=== PATIENT | male | born 1945 | race Caucasian/White ===

== ENCOUNTER → 2017-05-05 | Outpatient (CLI) | payer MEDICARE ==
[~2017-05-05] MED LIST: ACE500 PO; ASPI-1441 PO; ATOR40TA24 PO; CARV12.577 PO; CIPR-344 PO; CLO75 PO; HYDR-4309 PO; KET10 PO; LOSA50TA72 PO; METR-160 PO; NIT4 SL; OXYC-689 PO; SIMV-54 PO
== END ==
LOC: LAB 08:33
PROVIDERS: ATTEND Internal Medicine Cardiovascular Disease
DX: I25.10 Atherosclerotic heart disease of native coronary artery without angina pectoris (principal); E78.00 Pure hypercholesterolemia, unspecified
CPT/HCPCS: 36415; 82465; 83718; 84478

== ENCOUNTER 2017-07-23 09:02 | Emergency (ER) | payer MEDICARE ==
[2017-07-23] MEDS ORDERED: NS(*) 0.9% 1000 ML BAG 1,000 ML IV ONE (09:10)
--- NOTE | 2017-07-23 09:20 | EKG ---
FACILITY: [facility] PATIENT NAME: BRIDGETTE CARUSO : [id number] MR: [id number] V: [id number] EXAM DATE: ORDERING PHYSICIAN: BASHIR ESCALERA TECHNOLOGIST: JOSSY Patricio Reason : TIA Blood Pressure : / mmHG Vent. Rate : 079 BPM Atrial Rate : 079 BPM P-R Int : 146 ms QRS Dur : 114 ms QT Int : 428 ms P-R-T Axes : 056 -14 158 degrees QTc Int : 490 ms Normal sinus rhythm with sinus arrhythmia Minimal voltage criteria for LVH, may be normal variant T wave abnormality, consider lateral ischemia Prolonged QT Abnormal ECG No previous ECGs available Confirmed by BRIDGETTE DEL REAL ([id number]) on 07/24/2017 12:29:04 PM Referred By: LALI Confirmed By:BRIDGETTE DEL REAL
--- NOTE | 2017-07-23 09:31 | ER Report ---
History and Physical Time Seen By MD: 09:10 Hx. of Stated Complaint: PATIENT WAS BROUGHT IN BY FAMILY FOR CONCERN OF A STROKE HPI/ROS CHIEF COMPLAINT: Strokelike symptoms HISTORY OF PRESENT ILLNESS: Patient is a 71-year-old male history of cardiovascular disease and bypass about 7-10 years ago this morning felt fine was at his baseline went to put some logs into a fireplace notices right upper extremity began getting weaker until eventually he had almost loss of function of the right upper extremity and an asymmetrical facial droop. Patient states that he subsequently no lower extremity involvement no memory loss no ataxia no nausea vomiting diarrhea or additional complaints noted REVIEW OF SYSTEMS: Respiratory: No cough, no dyspnea. Cardiovascular: No chest pain, no palpitations. Gastrointestinal: No vomiting, no abdominal pain. Musculoskeletal: No back pain. Remainder of the 14 system rev: Yes Allergies: Coded Allergies: codeine (Verified Allergy, Severe, RASH, 09/07/15) Home Meds Reported Medications Nitroglycerin (NITROSTAT) 0.4 Mg Subl, 0.4 MG SL Q5MIN Y for PAIN 12/22/14 Carvedilol (COREG) 12.5 Mg Tablet, 12.5 MG PO BID, #10 TAB 12/22/14 Losartan Potassium (LOSARTAN POTASSIUM) 50 Mg Tablet, 50 MG PO BID 12/22/14 Simvastatin (SIMVASTATIN) 40 Mg Tablet, 40 MG PO HS, TAB 12/22/14 Aspirin (Aspirin Ec) 81 Mg Tablet.dr, 81 MG PO DAILY, 0 Refills 09/03/10 Reviewed Nurses Notes: Yes Old Medical Records Reviewed: Yes Hx Smoking: No Smoking Status: Never Smoker Exposure to Second Hand Smoke?: No Hx Substance Use Disorder: No Hx Alcohol Use: Yes (RARE) Constitutional Vital Sign - Last 24 Hours 07/23/17 07/23/17 07/23/17 07/23/17 09:07 09:13 09:14 09:17 Pulse 83 81 Resp 20 B/P (MAP) 137/97 137/97 (110) Pulse Ox 91 90 07/23/17 07/23/17 07/23/17 07/23/17 09:22 09:27 09:30 09:32 Pulse 78 78 82 Resp 21 16 13 B/P (MAP) 126/89 (101) 125/103 (110) Pulse Ox 91 94 92 07/23/17 09:37 Pulse 79 Resp 17 Pulse Ox 91 Physical Exam General Appearance: The patient is alert, has no immediate need for airway protection and no current signs of toxicity. [ ] Eyes: Pupils equal and round no injection. Facial examination shows some facial asymmetry with a left-sided facial droop Respiratory: Chest is non tender, lungs are clear to auscultation. Cardiac: regular rate and rhythm [ ] Gastrointestinal: Abdomen is soft and non tender, no masses, bowel sounds normal. Musculoskeletal: Right upper 70 weakness Neck is supple and non tender. Extremities have full range of motion and are non tender. Skin: No rashes or lesions. 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 and left-sided facial asymmetry DIFFERENTIAL DIAGNOSIS: After history and physical exam differential diagnosis was considered for acute stroke Medical Decision Making Data Points Result Diagram: 07/23/17 0920 07/23/17 0920 Laboratory Hematology Test 07/23/17 09:20 Red Blood Count 4.53 M/uL (4.00-5.60) Mean Corpuscular Volume 95.2 fL (80.0-96.0) Mean Corpuscular Hemoglobin 32.6 pg (26.0-33.0) Mean Corpuscular Hemoglobin Concent 34.2 g/dL (32.0-36.0) Red Cell Distribution Width 13.7 % (11.5-14.5) Mean Platelet Volume 9.9 fL (7.2-11.1) Neutrophils (%) (Auto) 76.1 % (39.4-72.5) Lymphocytes (%) (Auto) 14.9 % (17.6-49.6) Monocytes (%) (Auto) 7.2 % (4.1-12.4) Eosinophils (%) (Auto) 1.1 % (0.4-6.7) Basophils (%) (Auto) 0.7 % (0.3-1.4) Nucleated RBC Relative Count (auto) 0.0 /100WBC Neutrophils # (Auto) 5.8 K/uL (2.0-7.4) Lymphocytes # (Auto) 1.1 K/uL (1.3-3.6) Monocytes # (Auto) 0.5 K/uL (0.3-1.0) Eosinophils # (Auto) 0.1 K/uL (0.0-0.5) Basophils # (Auto) 0.1 K/uL (0.0-0.1) Nucleated RBC Absolute Count (auto) 0.00 K/uL Prothrombin Time 13.0 seconds (12.0-14.4) Prothromb Time International Ratio 0.98 Activated Partial Thromboplast Time 30 seconds (23-35) Sodium Level 145 mmol/L (137-145) Potassium Level 3.9 mmol/L (3.5-5.0) Chloride Level 106 mmol/L (98-107) Carbon Dioxide Level 24 mmol/L (22-30) Blood Urea Nitrogen 20 mg/dl (9-21) Creatinine 1.00 mg/dl (0.66-1.25) Glomerular Filtration Rate Calc > 60.0 Random Glucose 142 mg/dl (75-110) Calcium Level 8.7 mg/dl (8.4-10.2) Total Bilirubin 0.9 mg/dl (0.2-1.3) Aspartate Amino Transf (AST/SGOT) 39 U/L (0-35) Alanine Aminotransferase (ALT/SGPT) 42 U/L (0-56) Alkaline Phosphatase 82 U/L (0-126) Troponin I 1.900 ng/ml Total Protein 7.1 gm/dl (6.3-8.2) Albumin 3.8 g/dl (3.5-5.0) Chemistry Test 07/23/17 09:20 White Blood Count 7.6 k/uL (4.5-11.0) Red Blood Count 4.53 M/uL (4.00-5.60) Hemoglobin 14.8 g/dL (14.0-18.0) Hematocrit 43.1 % (42.0-52.0) Mean Corpuscular Volume 95.2 fL (80.0-96.0) Mean Corpuscular Hemoglobin 32.6 pg (26.0-33.0) Mean Corpuscular Hemoglobin Concent 34.2 g/dL (32.0-36.0) Red Cell Distribution Width 13.7 % (11.5-14.5) Platelet Count 190 K/uL (150-450) Mean Platelet Volume 9.9 fL (7.2-11.1) Neutrophils (%) (Auto) 76.1 % (39.4-72.5) Lymphocytes (%) (Auto) 14.9 % (17.6-49.6) Monocytes (%) (Auto) 7.2 % (4.1-12.4) Eosinophils (%) (Auto) 1.1 % (0.4-6.7) Basophils (%) (Auto) 0.7 % (0.3-1.4) Nucleated RBC Relative Count (auto) 0.0 /100WBC Neutrophils # (Auto) 5.8 K/uL (2.0-7.4) Lymphocytes # (Auto) 1.1 K/uL (1.3-3.6) Monocytes # (Auto) 0.5 K/uL (0.3-1.0) Eosinophils # (Auto) 0.1 K/uL (0.0-0.5) Basophils # (Auto) 0.1 K/uL (0.0-0.1) Nucleated RBC Absolute Count (auto) 0.00 K/uL Prothrombin Time 13.0 seconds (12.0-14.4) Prothromb Time International Ratio 0.98 Activated Partial Thromboplast Time 30 seconds (23-35) Glomerular Filtration Rate Calc > 60.0 Calcium Level 8.7 mg/dl (8.4-10.2) Total Bilirubin 0.9 mg/dl (0.2-1.3) Aspartate Amino Transf (AST/SGOT) 39 U/L (0-35) Alanine Aminotransferase (ALT/SGPT) 42 U/L (0-56) Alkaline Phosphatase 82 U/L (0-126) Troponin I 1.900 ng/ml Total Protein 7.1 gm/dl (6.3-8.2) Albumin 3.8 g/dl (3.5-5.0) Coagulation Test 07/23/17 09:20 Prothrombin Time 13.0 seconds Prothromb Time International Ratio 0.98 Activated Partial Thromboplast Time 30 seconds ED Course/Re-evaluation ED Course Medical course [age]-old male comes in with acute strokelike symptoms onset less than 2 hours prior to presentation by criteria for utilization a TPA stroke protocol was initiated as was a stroke alert spoke to 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 is indicated as her medications as he CT demonstrated an old infarct but no acute focal bleed gave TPA would be administered CT angiogram of the head neck also requested by neurology this be performed repeat evaluation neurologically show some mild improvement patient also noted on lab to have an elevated troponin does have a significant cardiac history 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 [facility] does not want any additional medications given at this time he'll be sent by helicopter due to both head strokelike symptoms and cardiac ischemia patient will be sent by helicopter Decision to Disposition Date: Jul 23, 2017 Decision to Disposition Time: 10:26 Depart Departure Latest Vital Signs Vital Signs Date Time Temp Pulse Resp B/P (MAP) Pulse Ox O2 Delivery O2 Flow Rate FiO2 07/23/17 09:37 79 17 91 07/23/17 09:30 125/103 (110) Impression: Primary Impression: Acute cardioembolic stroke Additional Impressions: Acute ischemic stroke Cardiac ischemia Condition: Improved Disposition: XFER TO ACUTE [facility]ARE [facility]OS[facility]ITAL Referrals: DEEJAY KUMAR MD (PCP) Problem Qualifiers BASHIR ESCALERA MD Jul 23, 2017 09:31
[2017-07-23 09:35] LABS: PLATELET COUNT, AUTOMATED 190 K/uL (150-450)
[2017-07-23 09:41] LABS: INR 0.98
[2017-07-23] MEDS ORDERED: NS 0.9% 150 ML BAG 150 ML ONE (09:41)
[2017-07-23] MEDS ORDERED: IOPAMIDOL 76% 75 ML INFUS BTL 75 ML ONE (09:41)
--- NOTE | 2017-07-23 09:50 | RADIOLOGY IMAGING REPORT ---
FACILITY: [facility] [place] PATIENT NAME: Naldo Valencia : 1945 MR: [id number] V: [id number] EXAM DATE: ORDERING PHYSICIAN: BASHIR ESCALERA TECHNOLOGIST: Location: [facility] Patient: Naldo Valencia : 1945 Visit/Account:[id number] Date of Sevice: 07/23/2017 HEAD W/O CONTRAST Provided history: Altered mental status, stroke symptoms, right facial numbness. Additional pertinent history: None TECHNIQUE: Imaging was obtained from the skull base through the vertex without intravenous contrast. Source images were reformatted in the coronal sagittal planes. One of the following dose optimization techniques was utilized in the performance of this exam: Autom ated exposure control; adjustment of the mA and/or kV according to the patient's size; or use of an i terative reconstruction technique. Specific details can be referenced in the facility's radiology CT exam operational policy. COMPARISON STUDIES: No relevant priors FINDINGS: Brain volume: Normal Acute cortical ischemia: None Chronic cortical and ganglionic ischemia: Old moderate sized right parieto-occipital junction infar ct in the posterior right MCA distribution. Additional smaller old infarct right occipital lobe in t he right FLAT FOLDER distribution. Another in the mid peripheral right cerebellar hemisphere. More subtle o ld ischemia lower left putamen. Hemorrhage: None Masses / edema: None White matter: Minor hypodensity in the deep white matter of both hemispheres. Vessels: Normal Extra-axial: None significant Calvarium / scalp: Negative Skull base: negative Visualized sinuses / orbits: Lilly bullosa both middle turbinates. Mild rightward deviation nasal septum. IMPRESSION: 1. No evidence of hemorrhage, mass or acute ischemia. 2. Several sites of old ischemia in several vascular distributions are described above. 3. A CTA of the neck and brain is pending. Report Dictated By: Vikas Crawford MD at 07/23/2017 9:37 AM Report E-Signed By: Vikas Crawford MD at 07/23/2017 9:46 AM WSN:[id number]
[2017-07-23] MEDS ORDERED: TENECTEPLASE 50 MG KIT IVP ONE (10:05)
--- NOTE | 2017-07-23 10:08 | RADIOLOGY IMAGING REPORT ---
FACILITY: [facility] - [place] PATIENT NAME: Naldo Valencia : 1945 MR: [id number] V: [id number] EXAM DATE: ORDERING PHYSICIAN: BASHIR ESCALERA TECHNOLOGIST: [place] [facility] [place] Naldo Valencia : 1945 Visit/Account:[id number] Date of Sevice: 07/23/2017 CHEST PA AND LAT INDICATION: Stroke COMPARISON: None available FINDINGS: The cardiac silhouette is normal in size. Intact sternotomy wires are present. No pneum othorax. The lungs are clear. No acute osseous abnormality. IMPRESSION: No acute finding. Report Dictated By: Alden Marr MD at 07/23/2017 10:01 AM Report E-Signed By: Alden Marr MD at 07/23/2017 10:02 AM WSN:[id number]
[2017-07-23] MEDS ORDERED: ALTEPLASE RECOMB 100 MG/100 ML VIAL IV ONE (10:10)
[2017-07-23 11:10] VITALS: BP 118/87
--- NOTE | 2017-07-23 11:10 | RADIOLOGY IMAGING REPORT ---
FACILITY: [facility] PATIENT NAME: Naldo Valencia : 1945 MR: [id number] V: [id number] EXAM DATE: ORDERING PHYSICIAN: BASHIR ESCALERA TECHNOLOGIST: Location: [facility] Patient: Naldo Valencia : 1945 Visit/Account:[id number] Date of Sevice: 07/23/2017 CT ANGIOGRAM HEAD W/ CONTRAST, CTA NECK/CAROTIDS W W/O CONTR Provided history: Altered mental status. Stroke symptoms. Right facial numbness. Additional pertinent history: none TECHNIQUE: A preliminary non-IV enhanced axial series was obtained through the brain was performed initially and is oriented interpreted with nothing acute. Overlapping thin spiral sections were obtained during a bolus of IV contrast from the lung apices thr ough the vertex. Reconstruction of the source data set includes multiplanar 2D in the sagittal and co aashish planes, and 3D coronal thin slab MIP series. Help Desk Rep images have been stored on PACS. Contrast: 75 ml Isovue 370 One of the following dose optimization techniques was utilized in the performance of this exam: Autom ated exposure control; adjustment of the mA and/or kV according to the patient's size; or use of an i terative reconstruction technique. Specific details can be referenced in the facility's radiology C T exam operational policy. COMPARISON STUDIES: No relevant priors FINDINGS: Angiographic findings: Aortic arch and great vessels: Negative. Right CCA / ICA: Negative. Left CCA / ICA: Moderate proximal tortuosity with a partial kink in the vessel best seen on the sag ittal reformat resulting in less than 50% narrowing of the lumen. Common carotid bifurcation normal. Internal carotid normal. Vertebro-basilar: Left vertebral is dominant. Both vessels patent in continuity into the posterior fossa without stenotic disease. Basilar normal.. [place] of Dick: Negative. BETHEL circulation: Negative. MCA circulation: Asymmetric paucity of vessels in the posterior third of the right MCA circulation from an old infarct that location.. SEWER PIPE LAYER HELPER circulation: Negative. Other: none significant Additional non-angiographic findings: none significant IMPRESSION: Limited reconstructions are available at time of this dictation. This will serve as a preliminary re port, to be finalized after full reconstructions are received. The study reveals no significant stenotic disease in the neck or [place] of Dick. No significant at heromata. The soft tissue reconstructions of the neck are now received. Additional finding noted are several hypoenhancing foci in the thyroid gland, very likely benign. Pr evious bypass surgery noted. A saphenous vein graft to the circumflex is patent. A HU graft to th e LAD is patent. [place] proximal LAD is occluded. Upper margin of the right coronary graft enhances normally. Report Dictated By: Vikas Crawford MD at 07/23/2017 10:27 AM Report E-Signed By: Vikas Crawford MD at 07/23/2017 11:07 AM WSN:[id number]
--- NOTE | 2017-07-23 11:10 | RADIOLOGY IMAGING REPORT ---
FAC[place] [facility] [place]IENT NAME: Naldo Valencia : 1945 MR: [id number] V: [id number] EXAM DATE: ORDERING PHYSICIAN: BASHIR ESCALERA TECHNOLOGIST: Location: [facility] [place] Patient: Naldo Valencia : 1945 Visit/Account:[id number] Date of Sevice: 07/23/2017 CT ANGIOGRAM HEAD W/ CONTRAST, CTA NECK/CAROTIDS W W/O CONTR Provided history: Altered mental status. Stroke symptoms. Right facial numbness. Additional pertinent history: none TECHNIQUE: A preliminary non-IV enhanced axial series was obtained through the brain was performed initially and is oriented interpreted with nothing acute. Overlapping thin spiral sections were obtained during a bolus of IV contrast from the lung apices thr ough the vertex. Reconstruction of the source data set includes multiplanar 2D in the sagittal and co aashish planes, and 3D coronal thin slab MIP series. Card Scraper images have been stored on PACS. Contrast: 75 ml Isovue 370 One of the following dose optimization techniques was utilized in the performance of this exam: Autom ated exposure control; adjustment of the mA and/or kV according to the patient's size; or use of an i terative reconstruction technique. Specific details can be referenced in the facility's radiology C T exam operational policy. COMPARISON STUDIES: No relevant priors FINDINGS: Angiographic findings: Aortic arch and great vessels: Negative. Right CCA / ICA: Negative. Left CCA / ICA: Moderate proximal tortuosity with a partial kink in the vessel best seen on the sag ittal reformat resulting in less than 50% narrowing of the lumen. Common carotid bifurcation normal. Internal carotid normal. Vertebro-basilar: Left vertebral is dominant. Both vessels patent in continuity into the posterior fossa without stenotic disease. Basilar normal.. [place] of Dick: Negative. BETHEL circulation: Negative. MCA circulation: Asymmetric paucity of vessels in the posterior third of the right MCA circulation from an old infarct that location.. RN CASE MGR circulation: Negative. Other: none significant Additional non-angiographic findings: none significant IMPRESSION: Limited reconstructions are available at time of this dictation. This will serve as a preliminary re port, to be finalized after full reconstructions are received. The study reveals no significant stenotic disease in the neck or [place] of Dick. No significant at heromata. The soft tissue reconstructions of the neck are now received. Additional finding noted are several hypoenhancing foci in the thyroid gland, very likely benign. Pr evious bypass surgery noted. A saphenous vein graft to the circumflex is patent. A HU graft to th e LAD is patent. [place] proximal LAD is occluded. Upper margin of the right coronary graft enhances normally. Report Dictated By: Vikas Crawford MD at 07/23/2017 10:27 AM Report E-Signed By: Vikas Crawford MD at 07/23/2017 11:07 AM WSN:[id number]
== END 2017-07-23 11:37 | disposition short-term general hospital (02) ==
LOC: ER 09:11
DX: I63.8 Other cerebral infarction (principal); I25.9 Chronic ischemic heart disease, unspecified; I49.9 Cardiac arrhythmia, unspecified; R94.31 Abnormal electrocardiogram [ECG] [EKG]
CPT/HCPCS: 70450; 70496; 70498; 71046; 81001; 84484; 85025; 85610; 85730; 93005; 96360; 96361; 99285; J2997; J7030; Q9967; 82040; 82247; 82310; 82374; 82435; 82565; 82947; 84075; 84132; 84155; 84295; 84450; 84460; 84520

== ENCOUNTER → 2017-07-23 | Outpatient (REF) | LOC: AMB 10:44 | PROVIDERS: ATTEND Nurse Practitioner | DX: Z02.9 Encounter for administrative examinations, unspecified (principal) ==

== ENCOUNTER → 2018-05-28 | Outpatient (CLI) | payer MEDICARE ==
[~2018-05-28] MED LIST changes: -HYDR-4309 PO; +HYDR-653 PO; -LOSA50TA72 PO; +LOSA50TA80 PO; -METR-160 PO; +METR500T15 PO
== END ==
LOC: US 01:03
PROVIDERS: ATTEND Internal Medicine Cardiovascular Disease
DX: I51.7 Cardiomegaly (principal)
CPT/HCPCS: C8929; Q9957

== ENCOUNTER → 2018-07-09 | Outpatient (CLI) | payer MEDICARE ==
--- NOTE | 2018-07-09 15:13 | RT STRESS TEST REPORT ---
FACILITY: [facility] - [place] PATIENT NAME: BRIDGETTE CARUSO : [id number] MR: [id number] V: [id number] EXAM DATE: ORDERING PHYSICIAN: DEEJAY KUMAR TECHNOLOGIST: Rufino Acquisition Time: 2018-07-09 14:38:17 Total Exercise Time: 00:07:59 Test Indications: Screening for CAD Medications: see nuclear med sheet Protocol: CARLOS 2 Max HR: 139 BPM 92% of Pred: 150 BPM Max BP: 164/100 mmHG Max Work Load: 10.0 METS Patient exercised eight (8) minutes under Carlos 2 Protocol. He did not experience any chest pain or s ignificant dyspnea. His stress EKGs do show some accentuation of resting mild ST depression and T wave inversion in the inferolateral leads. He also had some ventricular ectopy at maximal exercise and for a short time into recovery. One couplet and a triplet were noted. Recovery was otherwise un remarkable. IMPRESSION: Suspect at least Intermediate Probability of Ischemia. Await Myoview Images. Confirmed by MANISH VILLA ([id number]) on 07/09/2018 3:12:43 PM Referred By: Overread By: MANISH VILLA
--- NOTE | 2018-07-09 16:53 | RADIOLOGY IMAGING REPORT ---
FACILITY: [facility] - [place] PATIENT NAME: Naldo Valencia : 1945 MR: [id number] V: [id number] EXAM DATE: ORDERING PHYSICIAN: DEEJAY KUMAR TECHNOLOGIST: Location: [facility] [place] Patient: Naldo Valencia : 1945 Visit/Account:[id number] Date of Sevice: 07/09/2018 EXAMINATION: Single Isotope SPECT Imaging with Exercise and Gated SPECT Imaging DATE OF EXAMINATION: July 09, 2018 DATE OF INTERPRETATION: July 09, 2018 REQUESTING PHYSICIAN: DEEJAY KUMAR INDICATION: The patient is a 72-year-old male evaluated for CAD. PROCEDURE: After informed consent the patient received an intravenous injection of 12.4 mCi of Tc-9 9m sestamibi followed at the appropriate time interval by rest imaging. The patient then exercised a ccording to the standard Carlos protocol for 8 minutes achieving 9 METS. Resting heart rate was 86 bp m with a peak heart rate of 139 bpm which is 92 % of maximal predicted heart rate for age. Blood pr essure at rest was 155 / 98; blood pressure during exercise was 164 / 100. There was no chest pain d uring exercise. Exercise was discontinued because of fatigue. Baseline EKG demonstrates sinus rhyth m, inferior Q waves, mild nonspecific ST-T abnormality.. There were no diagnostic EKG changes of isc hemia at peak exercise. Approximately one minute and 30 seconds prior to the termination of exercise , the patient received an intravenous injection of 29.2 mCi of Tc-99m sestamibi followed by stress im aging. RAW DATA: Examination of the summed raw data revealed a fair quality study. MYOCARDIAL PERFUSION: The tomographic images demonstrate a severe moderately extensive fixed inferio r and inferolateral defect at the base and mid ventricle consistent with prior infarct in the territo ry of the RCA. There is a mild anterior perfusion defect which becomes moderately severe post exercis e consistent with ischemia in the territory of a diagonal branch vessel. The septum has normal perfus ion.. GATED IMAGES: The gated images demonstrate severe left ventricular systolic dysfunction, severe glob al hypokinesis LVEF 28%. IMPRESSION: 1. Negative exercise ECG for angina, no diagnostic ECG changes; good exercise level 9 METs. 2. Abnormal myocardial perfusion scan. Severe moderately extensive in the inferior and inferolateral defect consistent with prior infarct in the territory most likely RCA. Moderately severe anterior pe rfusion defect at the base and mid ventricle sparing the septum which is reversible and likely consis tent with ischemia in the territory of a diagonal branch vessel. 3. Abnormal LV systolic function; LVEF 28%. 4. Based on the results of this exam, the patient appears to be at high risk for future cardiovascula r events. Report Dictated By: Shawn Ortega MD at 07/09/2018 4:42 PM Report E-Signed By: Shawn Ortega MD at 07/09/2018 4:49 PM WSN:[id number]
== END ==
LOC: NUC 00:58
PROVIDERS: ATTEND Internal Medicine Cardiovascular Disease
DX: I25.118 Atherosclerotic heart disease of native coronary artery with other forms of angina pectoris (principal)
CPT/HCPCS: 78452; 93017; A9500

== ENCOUNTER → 2018-07-13 | Outpatient (CLI) | payer MEDICARE | LOC: LAB 10:09 | PROVIDERS: ATTEND Internal Medicine Cardiovascular Disease | DX: I25.118 Atherosclerotic heart disease of native coronary artery with other forms of angina pectoris (principal) | CPT/HCPCS: 36415; 82310; 82374; 82435; 82565; 82947; 84132; 84295; 84520; 85027 ==

== ENCOUNTER → 2018-11-05 | Outpatient (CLI) | payer MEDICARE ==
[2018-11-05 09:06] LABS: INR 1.46
== END ==
LOC: LAB 08:29
PROVIDERS: ATTEND Internal Medicine Cardiovascular Disease
DX: Z51.81 Encounter for therapeutic drug level monitoring (principal); I63.9 Cerebral infarction, unspecified; Z79.01 Long term (current) use of anticoagulants
CPT/HCPCS: 36415; 85610

== ENCOUNTER → 2018-11-09 | Outpatient (CLI) | payer MEDICARE ==
[2018-11-09 09:18] LABS: INR 2.01
== END ==
LOC: LAB 08:54
PROVIDERS: ATTEND Internal Medicine Cardiovascular Disease
DX: Z51.81 Encounter for therapeutic drug level monitoring (principal); I63.9 Cerebral infarction, unspecified; Z79.01 Long term (current) use of anticoagulants
CPT/HCPCS: 36415; 85610

== ENCOUNTER → 2018-11-16 | Outpatient (CLI) | payer MEDICARE ==
[2018-11-16 09:49] LABS: INR 4.78
== END ==
LOC: LAB 08:42
PROVIDERS: ATTEND Internal Medicine Cardiovascular Disease
DX: Z51.81 Encounter for therapeutic drug level monitoring (principal); I63.9 Cerebral infarction, unspecified; Z79.01 Long term (current) use of anticoagulants
CPT/HCPCS: 36415; 85610

== ENCOUNTER → 2018-11-18 | Outpatient (CLI) | payer MEDICARE ==
[2018-11-18 11:34] LABS: INR 3.28
== END ==
LOC: LAB 10:30
PROVIDERS: ATTEND Internal Medicine Cardiovascular Disease
DX: Z51.81 Encounter for therapeutic drug level monitoring (principal); Z79.01 Long term (current) use of anticoagulants; I63.9 Cerebral infarction, unspecified
CPT/HCPCS: 36415; 85610